=== PATIENT | female | born 1970 | race Caucasian/White ===

== ENCOUNTER 2020-12-27 01:58 | Emergency (ER) | payer MEDICAID ==
[~2020-12-27] VITALS: Ht 162.6 cm; Wt 82.0 kg
[2020-12-27] MEDS ORDERED: ASPIRIN 81MG TABLET PO ONE (02:15)
[2020-12-27] MEDS ORDERED: CEPHALEXIN 250MG CAPSULE PO ONE (02:15)
[2020-12-27 02:30] LABS: BASOPHILS % 0.3 % (0.0-2.0); EOSINOPHILS % 1.5 % (0.0-5.0); HEMATOCRIT. 40.7 % (36.0-48.0); HEMOGLOBIN. 13.8 g/dL (12.0-16.0); LYMPHOCYTES % 46.5 % (20.0-50.0); MEAN CORPUSCULAR HEMOGLOBIN 30.5 pg (28.0-32.0); MEAN PLATELET VOLUME 7.7 fl (7.4-10.4); MONOCYTES % 6.1 % (2.0-8.0); NEUTROPHILS % 45.6 % (40.0-76.0); PLATELET 228 x1000/uL (130-400); RED BLOOD CELL COUNT 4.53 mill/uL (4.2-5.4); RED CELL DISTRIBUTION WIDTH 12.7 % (11.6-14.6)
[2020-12-27 02:37] LABS: CHLORIDE 107 mEq/L (98-107)
[2020-12-27] MEDS ORDERED: CEPH500T MT (05:03)
[2020-12-27 05:20] VITALS: BP 110/68
== END 2020-12-27 05:38 | disposition home or self-care (01) ==
LOC: ER 01:58
DX: R07.89 Other chest pain (principal); L03.311 Cellulitis of abdominal wall; Z90.49 Acquired absence of other specified parts of digestive tract
CPT/HCPCS: 36415; 71045; 80053; 83880; 84484; 85025; 87040; 93005; 99285; Z7610

== ENCOUNTER 2021-01-29 14:19 | Emergency (ER) | payer MEDICAID ==
[~2021-01-29] VITALS: Ht 154.9 cm; Wt 85.9 kg
[~2021-01-29 14:19] MED LIST: CEPH500T MT
[2021-01-29] MEDS ORDERED: MORPHINE SULFATE 4 MG/ML CPJ (NOT FOR IM USE) IV ONE (14:45)
[2021-01-29] MEDS ORDERED: ONDANSETRON HCL 4MG/2ML INJ IV ONE (14:45)
[2021-01-29] MEDS ORDERED: SODIUM CHLORIDE 0.9% 1,000 ML IV ONE (14:45)
[2021-01-29 15:04] LABS: BASOPHILS % 0.9 % (0.0-2.0); EOSINOPHILS % 0.4 % (0.0-5.0); HEMATOCRIT. 39.1 % (36.0-48.0); HEMOGLOBIN. 13.5 g/dL (12.0-16.0); LYMPHOCYTES % 19.4 % (20.0-50.0); MEAN CORPUSCULAR HEMOGLOBIN 30.4 pg (28.0-32.0); MEAN CORPUSCULAR VOLUME 87.9 fL (81.0-99.0); MEAN PLATELET VOLUME 7.9 fl (7.4-10.4); MONOCYTES % 4.9 % (2.0-8.0); NEUTROPHILS % 74.4 % (40.0-76.0); PLATELET 251 x1000/uL (130-400); RED BLOOD CELL COUNT 4.44 mill/uL (4.2-5.4); RED CELL DISTRIBUTION WIDTH 12.7 % (11.6-14.6)
[2021-01-29 15:05] LABS: CLARITY URINE CLOUDY (CLEAR); COLOR URINE RED (YELLOW); KETONES URINE 1+ (NEGATIVE); LEUKOCYTE ESTERASE URINE TRACE (NEGATIVE); NITRITE URINE NEGATIVE (NEGATIVE); OCCULT BLOOD URINE 3+ (NEGATIVE); PH URINE 5.5 (4.5-8.0); PROTEIN URINE 1+ (NEGATIVE); SPECIFIC GRAVITY URINE 1.018 (1.005-1.030); UROBILINOGEN URINE 0.2 E.U./dL (0.2-1.0)
[2021-01-29 15:12] LABS: CHLORIDE 101 mEq/L (98-107)
[2021-01-29] MEDS ORDERED: KETOROLAC 15MG/ML VIAL IV ONE ×2 (15:30→16:15)
[2021-01-29] MEDS ORDERED: CEFTRIAXONE 1 G PREMIX 50 ML IV ONE (16:00)
[2021-01-29] MEDS ORDERED: TAMS-11 PO (17:53)
[2021-01-29] MEDS ORDERED: ONDA4TAB11 PO (17:53)
[2021-01-29] MEDS ORDERED: TOPUD PO (17:53)
[2021-01-29] MEDS ORDERED: IBUP-2029 MT (17:53)
[2021-01-29] MEDS ORDERED: OXYC-662 MT (17:53)
[2021-01-29 18:27] VITALS: BP 129/79
== END 2021-01-29 18:48 | disposition home or self-care (01) ==
LOC: ER 14:19
DX: N20.0 Calculus of kidney (principal); N13.30 Unspecified hydronephrosis; Z90.49 Acquired absence of other specified parts of digestive tract; Z87.442 Personal history of urinary calculi
CPT/HCPCS: 36415; 74176; 80053; 81003; 83605; 83690; 84145; 85025; 93005; 96361; 96365; 96375; 99285; J0696; J1885; J2270; J2405; J7030